=== PATIENT | female | born 1985 | race Two or more races ===

== ENCOUNTER 2025-03-26 07:01 | Inpatient (IN) | payer OTHER ==
[~2025-03-26] VITALS: Ht 167.6 cm; Wt 2.3 kg
[2025-03-26 06:38] VITALS: BP 106/73
[2025-03-26] MEDS ORDERED: RINGERS SOLUTION,LACTATED 1,000 ML IV SCH (07:15)
[2025-03-26] MEDS ORDERED: PRENATAL TABLE1 EAC1 PO (07:20)
[2025-03-26] MEDS ORDERED: SYNTHROID100 MCG PO (07:20)
[2025-03-26 07:50] VITALS: BP 100/59; O2SAT 100
[2025-03-26 08:34] LABS: BASO % 0.2 % (0.1-1.2); EOS # 0.02 (0.04-0.54); EOS % 0.2 % (0.7-7.0); LYMPH # 1.18 (1.18-3.74); LYMPH % 12.2 % (19.3-53.1); MEAN PLATELET VOLUME 11.10 fl (9.4-12.4); MONO # 0.63 (0.24-0.82); MONO % 6.5 % (4.7-12.5); NEUT # 7.80 (1.56-6.13); NEUT % 80.4 % (34.0-71.1); RED CELL DISTRIBUTION WIDTH 16.9 % (11.6-14.4)
[2025-03-26 08:35] LABS: URINE APPEARANCE Clear; URINE BILIRRUBIN Negative (NEGATIVE); URINE BLOOD Large; URINE COLOR Yellow; URINE GLUCOSE Negative (NEGATIVE); URINE KETONE Negative (NEGATIVE); URINE LEUKOCYTE Negative; URINE NITRATE Negative; URINE PROTEIN Trace (NEGATIVE); URINE UROBILINOGEN 0.2 E.U./dl
[2025-03-26 08:40] LABS: URINE BACTERIA 69.6 uL (0.0-1933); URINE EPITHELIAL CELLS 4.1 uL (0.0-38.8); URINE RBC 840.2 uL (0.0-20.8); URINE WBC 3.8 uL (0.0-23.2)
[2025-03-26 08:44] LABS: URINE CAST 0.00 uL (0.0-1.40)
[2025-03-26 08:49] LABS: COVID-19 AG POSITIVE (NEGATIVE)
[2025-03-26 08:59] LABS: ALT/SGPT 45.0 U/L (12-78); AST/SGOT 30.0 U/L (15-37); BILIRUBIN TOTAL 0.29 mg/dL (0.3-1.2); BUN CREA RATIO 8.0 (7.0-25.0); CREATININE SERUM 0.48 mg/dL (0.55-1.02); GFR 142.52; GLOBULINA 3.1 G/DL (2.4-3.5); GLUCOSE FASTING 83.0 mg/dL (65-100); OSMOLALITY SERUM 272.0 MOSM/KG (275-295)
[2025-03-26 09:04] LABS: INR 0.95
[2025-03-26] MEDS ORDERED: OXYTOCIN 10 UNITS/ML VIAL IV ONE ×2 (10:10→23:45)
[2025-03-26] MEDS ORDERED: MORPHINE SULFATE 2 MG/ML CARTRIDGE IV ONE ×2 (11:30)
[2025-03-26] MEDS ORDERED: MORPHINE SULFATE 4 MG/ML VIAL IV ONE ×2 (11:40→12:00)
[2025-03-26 12:05] VITALS: BP 129/74
[2025-03-26] MEDS ORDERED: MORPHINE SULFATE 4 MG/ML CARTRIDGE IV SCH (13:00)
[2025-03-26 16:00] VITALS: BP 128/73
[2025-03-26 18:15] LABS: BASO % 0.1 % (0.1-1.2); EOS # 0.00 (0.04-0.54); EOS % 0.0 % (0.7-7.0); LYMPH # 0.91 (1.18-3.74); LYMPH % 6.5 % (19.3-53.1); MEAN PLATELET VOLUME 10.80 fl (9.4-12.4); MONO # 0.59 (0.24-0.82); MONO % 4.2 % (4.7-12.5); NEUT # 12.48 (1.56-6.13); NEUT % 88.8 % (34.0-71.1); RED CELL DISTRIBUTION WIDTH 16.9 % (11.6-14.4)
[2025-03-26] MEDS ORDERED: ERYTHROMYCIN BASE OPHT 1GM EACH TUBE OP ONE (23:45)
[2025-03-27 00:30] VITALS: BP 132/84
[2025-03-27] MEDS ORDERED: LEVOTHYROXINE SODIUM 100 MCG TABLET PO SCH (06:00)
[2025-03-27] MEDS ORDERED: OxyCODONE HCL 5 MG TABLET (ROXICODONE) PO SCH (08:00)
[2025-03-27] MEDS ORDERED: ACETAMINOPHEN 325 MG TABLET PO SCH (08:00)
[2025-03-27] MEDS ORDERED: DOCUSATE SODIUM 100MG CAP PO SCH (09:00)
[2025-03-27] MEDS ORDERED: SIMETHICONE 125 MG CAPSULE PO SCH (09:00)
[2025-03-27 09:18] VITALS: BP 115/73
[2025-03-27 17:13] VITALS: BP 121/79
[2025-03-28 00:07] VITALS: BP 118/79
[2025-03-28 08:33] VITALS: BP 102/64
[2025-03-28] MEDS ORDERED: IRON FUM,PS/FOLIC/BCOMP,C NO.9 1 CAP CAPSULE PO SCH (09:00)
[2025-03-28 13:26] VITALS: BP 100/65
[2025-03-28 17:09] VITALS: BP 119/77
[2025-03-29 00:15] VITALS: BP 114/72
[2025-03-29 08:00] VITALS: BP 121/80
[2025-03-29 17:24] VITALS: BP 113/70
[2025-03-29] MEDS ORDERED: COLACE100 MG PO (17:24)
[2025-03-29] MEDS ORDERED: SIMETHICONE125 M1 PO (17:25)
[2025-03-29] MEDS ORDERED: ACETAMINOPHEN500 M2 PO (17:26)
[2025-03-29] MEDS ORDERED: FUSION PLUS CA1 EACH PO (17:26)
== END 2025-03-29 17:37 | disposition home or self-care (01) | DRG 783 ==
LOC: OB/GYN 07:01 → LDR 07:01 → OB/GYN 08:40
PROVIDERS: Specialist; ADMIT Student in an Organized Health Care Education/Training Program; ATTEND Student in an Organized Health Care Education/Training Program
PROC: 0UB70ZZ Excision of Bilateral Fallopian Tubes, Open Approach (ICD-10-PCS; 2025-03-26)
PROC: 4A1HXCZ Monitoring of Products of Conception, Cardiac Rate, External Approach (ICD-10-PCS; 2025-03-26)
PROC: 8E0ZXY6 Isolation (ICD-10-PCS; 2025-03-26)
PROC: 10D00Z1 Extraction of Products of Conception, Low, Open Approach (ICD-10-PCS; principal; 2025-03-26 08:00)
DX: O45.8X3 Other premature separation of placenta, third trimester (principal); O60.14X0 Preterm labor third trimester with preterm delivery third trimester, not applicable or unspecified; U07.1 COVID-19; O98.52 Other viral diseases complicating childbirth; Z3A.36 36 weeks gestation of pregnancy; Z37.0 Single live birth; Z30.2 Encounter for sterilization